=== PATIENT | female | born 1990 | race Caucasian/White ===

== ENCOUNTER 2018-03-26 22:44 | Emergency (ER) | payer SELFPAY ==
[~2018-03-26] VITALS: Ht 167.6 cm; Wt 81.8 kg
[~2018-03-26 22:44] MED LIST: BACTRIM DS 8001 TAB PO
[2018-03-26] MEDS ORDERED: AMOXIL500 M1 PO (23:28)
[2018-03-26 23:39] VITALS: BP 131/75
== END 2018-03-26 23:39 | disposition home or self-care (01) ==
LOC: ED 22:44
DX: K03.81 Cracked tooth (principal); K08.89 Other specified disorders of teeth and supporting structures; F17.210 Nicotine dependence, cigarettes, uncomplicated
CPT/HCPCS: J1885